=== PATIENT | male | born 1955 | race Caucasian/White ===

== ENCOUNTER 2023-01-22 09:13 | Outpatient (CLI) | payer MEDICARE, SELFPAY ==
[2023-01-22 18:44] LABS: Basophils Percent Auto 0.8 % (0.2-1.2); Eosinophils Absolute Auto 0.1 K/mm3 (0-0.3); Eosinophils Percent Auto 2.3 % (0-4.4); Hematocrit 45.9 % (42.0-52.0); Hemoglobin 15.2 g/dL (14.0-18.0); Immature Granulocyte Absolute 0.01 K/mm3 (0.00-0.031); Immature Granulocyte Percent A 0.2 % (0-0.5); Lymphocytes Absolute Auto 1.44 K/mm3 (0.9-3.2); Lymphocytes Percent Auto 29.6 % (18.3-44.2); Mean Corpuscular HGB Conc 33.1 g/dl (32-36); Mean Corpuscular Hemoglobin 28.7 pg (26-34); Mean Corpuscular Volume 86.8 fl (80-100); Mean Platelet Volume 10.6 fl (7.4-10.4); Monocytes Absolute Auto 0.5 K/mm3 (0.1-0.6); Monocytes Percent Auto 9.7 % (2.6-8.5); Neutrophils Absolute Auto 2.8 K/mm3 (1.3-6.7); Neutrophils Percent Auto 57.4 % (45.5-73.1); Platelet Count Result 215 k/mm3 (150-375); Red Blood Count 5.29 M/mm3 (4.6-6.20); Red Cell Distribution Width 11.9 % (11.5-14.5); White Blood Count 4.9 K/mm3 (4.5-10.0)
[2023-01-22 19:06] LABS: Alanine Aminotransferase 40 U/L (6-50); Albumin Level 4.7 g/dL (3.5-5.1); Alkaline Phosphatase 88 U/L (38-126); Anion Gap 8 mmol/L (8-16); Aspartate Amino Transferase 39 U/L (17-59); Bilirubin,Total 0.7 mg/dL (0.2-1.3); Blood Urea Nitrogen 24 mg/dL (9-20); Carbon Dioxide 28 mmol/L (22-30); Chloride 99 mmol/L (98-107); Cholesterol 169 mg/dL (0-200); Estimated Glomerular Filt Rate > 60; Glucose 186 mg/dL (65-110); HDL Direct 39 mg/dL; Potassium 4.2 mmol/L (3.4-5.0); Sodium 135 mmol/L (137-145); Triglycerides 160 mg/dL (<150)
[2023-01-22 19:17] LABS: Creatinine Urine 178.2 mg/dL
[2023-01-22 19:18] LABS: LDL Cholesterol Direct 79 mg/dL
[2023-01-22 19:21] LABS: Vitamin D 25 Hydroxy 51.8 ng/mL
[2023-01-22 19:21] LABS: MALB Creatinine Ratio 9.7 mg/g (0-30); Microalbumin Urine Random 17.2 mg/L (0-16.7)
[2023-01-22 19:33] LABS: Hemoglobin A1C 7.7 % (<5.7)
[2023-01-22 19:36] LABS: Prostate Specific Antigen 1.2 ng/mL (< OR = 4.0)
== END 2023-01-22 09:14 | disposition home or self-care (01) ==
LOC: ANHGOSHLAB 09:15
PROVIDERS: PCP Family Medicine; Visit Provider Family Medicine
DX: E55.9 Vitamin D deficiency, unspecified (principal); E53.8 Deficiency of other specified B group vitamins; Z13.29 Encounter for screening for other suspected endocrine disorder; E11.9 Type 2 diabetes mellitus without complications; Z79.899 Other long term (current) drug therapy; Z12.5 Encounter for screening for malignant neoplasm of prostate; E78.5 Hyperlipidemia, unspecified
CPT/HCPCS: 36415; 80053; 80061; 82043; 82306; 82607; 83036; 84153; 84443; 85025; G0103

== ENCOUNTER 2023-05-22 11:24 | Day surgery (SDC) | payer MEDICARE, SELFPAY ==
--- NOTE | 2023-05-21 15:56 | WPDANESEPPF ---
Anes - Initial Pre Proc Eval Procedure: Operation Date: 05/22/23 13:00 Proposed Procedures p Colonoscopy - Abdelrahman Coronado MD Date/Time: 05/21/23 15:56 Surgeon: Abdelrahman Coronado MD Pre Op Diagnosis: HX Colon Polyps,FA HX Malignant Neoplasm Dig.Organ Patient Data Age: 67 Gender: M Height: 1.85 m Weight: 97.976 kg Allergies Allergy/AdvReac Type Severity Reaction Status Date / Time No Known Allergies Allergy Verified 05/22/23 11:40 Home Medications Medication Instructions Recorded Confirmed Type triamcinolone acetonide 0.1 % 1 applic topical BID PRN rash #15 12/12/20 05/22/23 Rx topical cream grams blood sugar diagnostic (Blood #100 ea 01/22/23 01/22/23 Rx Glucose Test strips) blood-glucose meter (Blood Glucose #1 ea 01/22/23 01/22/23 Rx Monitoring kit) lancets 33 gauge #100 ea 01/22/23 01/22/23 Rx metformin 500 mg tablet,extended 1,500 mg PO DAILY #270 tabs 01/23/23 05/22/23 Rx release 24hr simvastatin 20 mg tablet 20 mg PO QHS #90 tabs 02/17/23 05/22/23 Rx sodium,potassium,mag sulfates 17.5 See Rx Instructions PO .COMPLEX 04/24/23 04/29/23 Rx gram-3.13 gram-1.6 gram oral soln #354 mL (Suprep Bowel Prep Kit) multivitamin 1 tablet PO DAILY 04/29/23 05/22/23 History Patient hx anesthesia problems: none Family hx anesthesia problems: none Results Review: All pre-operative results and documents have been reviewed as part of the pre-operative evaluation. [facility] Past Medical History Medical History (Updated 05/22/23 @ 12:12 by Abdelrahman Coronado MD) Dyslipidemia Herpes zoster infection of thoracic region (~11/2021) History of colon polyps Hx of Achilles tendon repair physical therapy/no surgery - Right - 07/2014 Hx of fracture of clavicle Right - 03/1975 Lumbar spondylosis Type 2 diabetes mellitus without complications Surgical History Surgical History Hx of removal of cyst (~2010) Left hand, middle finger Hx of wisdom tooth extraction (~1980) Family History Family History Mother Family history of Parkinson's disease Father Carcinoma of colon Family history of malignant neoplasm of gastrointestinal tract Other Family history of malignant neoplasm Family history of mental disorder Social History Social History Smoking status: Never smoker Second hand tobacco smoke exposure: No Alcohol intake: current Alcohol use details: 1-2 per month Substance use: never Substance use type: does not use Lack of Transportation: No Lack of Food: Never True Current Housing: I Have Housing Concerned About Future Housing: No Difficulty Paying Gas/Electric Bills: No Difficulty Paying for Meds: No Currently Unemployed: No Education: Bachelor's Degree Difficulty w/ Childcare or Family Care: No Living arrangements: with family Additional living arrangements comments: Occupation/Education: retired Gender identity (if verbalized by the patient): Male Sexual Orientation (if Verbalized by the Patient): Straight or Heterosexual Spiritual care concerns: No Agree to blood products: Yes Anes - Eval Final PreProcedure Day of Procedure 05/21/23 15:56 Patient weight: overweight Heart: regular rate and rhythm Lungs: clear to auscultation Airway: Mallampati scale class II Neurological: alert and oriented Last oral intake: >/= 8 hours ASA classification: III Emergent: no Anesthetic plan: proceed Anesthesia type and monitoring: general GIVS and standard monitoring Results Review: All pre-operative results and documents have been reviewed as part of the pre-operative evaluation. Informed Consent: The patient's anesthetic plan and its attendant risks and benefits were discussed with the patient/family/POA. Questions were solicited and answers provided to the satisfactio
[2023-05-22 11:45] VITALS: BP 143/91; PULSE 94; RESP 14; TEMP 36.5; O2SAT 99
[2023-05-22] MEDS: LACTATED RINGERS 1,000 ML 150 ML IV CONT (11:59)
--- NOTE | 2023-05-22 12:10 | PM.HPGS ---
History of Present Illness History of Present Illness Consent: Risks, benefits, and alternatives have been discussed and questions answered. Patient agrees to proceed with procedure. Chief complaint: HX Colon Polyps,FA HX Malignant Neoplasm Dig.Organ Narrative: Demetrius Wolfe is a 67 year old male Presents for screening colonoscopy. It has normal bowel movements. His current weight appetite and bowel movements are normal. Patient has a very distant history of adenomatous colon polyp removed in 2007. Most recent colonoscopy 5 years ago was unremarkable. Family history is significant that his father had colon cancer. Review of Systems Review of Systems: review of Systems noncontributory. [facility] Past Medical History Medical History (Updated 05/22/23 @ 12:12 by Abdelrahman Coronado MD) Dyslipidemia Herpes zoster infection of thoracic region (~11/2021) History of colon polyps Hx of Achilles tendon repair physical therapy/no surgery - Right - 07/2014 Hx of fracture of clavicle Right - 03/1975 Lumbar spondylosis Type 2 diabetes mellitus without complications Surgical History Surgical History Hx of removal of cyst (~2010) Left hand, middle finger Hx of wisdom tooth extraction (~1980) Family History Family History Mother Family history of Parkinson's disease Father Carcinoma of colon Family history of malignant neoplasm of gastrointestinal tract Other Family history of malignant neoplasm Family history of mental disorder Social History Social History Smoking status: Never smoker Second hand tobacco smoke exposure: No Alcohol intake: current Alcohol use details: 1-2 per month Substance use: never Substance use type: does not use Lack of Transportation: No Lack of Food: Never True Current Housing: I Have Housing Concerned About Future Housing: No Difficulty Paying Gas/Electric Bills: No Difficulty Paying for Meds: No Currently Unemployed: No Education: Bachelor's Degree Difficulty w/ Childcare or Family Care: No Living arrangements: with family Additional living arrangements comments: Occupation/Education: retired Gender identity (if verbalized by the patient): Male Sexual Orientation (if Verbalized by the Patient): Straight or Heterosexual Spiritual care concerns: No Agree to blood products: Yes Meds Home Medications and Allergies Home Medications Medication Instructions Recorded Confirmed Type triamcinolone acetonide 0.1 % 1 applic topical BID PRN rash #15 12/12/20 05/22/23 Rx topical cream grams blood sugar diagnostic (Blood #100 ea 01/22/23 01/22/23 Rx Glucose Test strips) blood-glucose meter (Blood Glucose #1 ea 01/22/23 01/22/23 Rx Monitoring kit) lancets 33 gauge #100 ea 01/22/23 01/22/23 Rx metformin 500 mg tablet,extended 1,500 mg PO DAILY #270 tabs 01/23/23 05/22/23 Rx release 24hr simvastatin 20 mg tablet 20 mg PO QHS #90 tabs 02/17/23 05/22/23 Rx sodium,potassium,mag sulfates 17.5 See Rx Instructions PO .COMPLEX 04/24/23 04/29/23 Rx gram-3.13 gram-1.6 gram oral soln #354 mL (Suprep Bowel Prep Kit) multivitamin 1 tablet PO DAILY 04/29/23 05/22/23 History Allergies Allergy/AdvReac Type Severity Reaction Status Date / Time No Known Allergies Allergy Verified 05/22/23 11:40 Vital Signs Vital Signs - 24 hr 05/22/23 11:45 Temperature 97.7 F Pulse Rate 94 Respiratory Rate 14 Blood Pressure 143/91 H Pulse Oximetry 99 Oxygen Delivery Room Air Exam Narrative: physical exam reveals patient to be alert. Vital signs stable. HEENT exam is unremarkable. Patient is anicteric. Lungs are clear to auscultation and to percussion. Heart is without murmur or extra sounds. Abdomen bowel sounds are present soft nontender with no o
[2023-05-22 12:36] VITALS: BP 133/76; PULSE 86; RESP 16; O2SAT 99
[2023-05-22 12:46] VITALS: BP 124/74; PULSE 77; RESP 16; O2SAT 98
[2023-05-22 12:56] VITALS: BP 128/78; PULSE 75; RESP 16; O2SAT 97
[2023-05-22 13:03] LABS: Glucose Point of Care 123 mg/dl (65-105)
--- NOTE | 2023-05-22 14:22 | WPDANESPN ---
Anes - Prog Note Post-Op Date/Time: 05/22/23 14:22 Cardiovascular status: normal Respiratory status: normal Airway patency: baseline Mental status: baseline Post-Op hydration status: normal Vital Signs: Last Vital Signs Temp 36.5 C 05/22/23 11:45 Pulse 75 05/22/23 12:56 Resp 16 05/22/23 12:56 BP 128/78 05/22/23 12:56 Pulse Ox 97 05/22/23 12:56 O2 Del Method Room Air 05/22/23 12:56 Pain Score (VAS): 0 I/O: Intake & Output 05/21/23 05/22/23 05/22/23 23:59 07:59 15:59 Intake Total 400 Balance 400 05/22/23 11:54 POC Capillary Glucose 123 H Post-procedural complaints: none Patient Feedback: Patient satisfied with anesthetic care. Other Findings: Patient vital signs back to baseline. Patient denies nausea and vomiting. Patient's pain under control. Patient OK for discharge.
== END 2023-05-22 13:14 | disposition home or self-care (01) ==
PROVIDERS: PCP Family Medicine; Visit Provider Internal Medicine Gastroenterology
PROC: 0DJD8ZZ Inspection of Lower Intestinal Tract, Via Natural or Artificial Opening Endoscopic (ICD-10-PCS; CPT 45378; principal; 2023-05-22 13:00)
DX: Z86.010 Personal history of colon polyps (principal); K57.30 Diverticulosis of large intestine without perforation or abscess without bleeding; K64.8 Other hemorrhoids
CPT/HCPCS: 45378

== ENCOUNTER 2024-04-07 12:31 | Outpatient (CLI) | payer MEDICARE, SELFPAY ==
[2024-04-07 18:46] LABS: Basophils Absolute Auto 0.1 K/mm3 (0.0-0.1); Basophils Percent Auto 0.8 % (0.2-1.2); Eosinophils Absolute Auto 0.1 K/mm3 (0-0.3); Eosinophils Percent Auto 1.4 % (0-4.4); Hematocrit 45.3 % (42.0-52.0); Hemoglobin 15.2 g/dL (14.0-18.0); Immature Granulocyte Absolute 0.01 K/mm3 (0.00-0.031); Immature Granulocyte Percent A 0.1 % (0-0.5); Lymphocytes Absolute Auto 1.51 K/mm3 (0.9-3.2); Lymphocytes Percent Auto 19.5 % (18.3-44.2); Mean Corpuscular HGB Conc 33.6 g/dl (32-36); Mean Corpuscular Hemoglobin 29.9 pg (26-34); Mean Corpuscular Volume 89.2 fl (80-100); Mean Platelet Volume 10.6 fl (7.4-10.4); Monocytes Absolute Auto 0.6 K/mm3 (0.1-0.6); Monocytes Percent Auto 8.3 % (2.6-8.5); Neutrophils Absolute Auto 5.4 K/mm3 (1.3-6.7); Neutrophils Percent Auto 69.9 % (45.5-73.1); Platelet Count Result 234 k/mm3 (150-375); Red Blood Count 5.08 M/mm3 (4.6-6.20); Red Cell Distribution Width 11.9 % (11.5-14.5); White Blood Count 7.7 K/mm3 (4.5-10.0)
[2024-04-07 19:36] LABS: Creatinine Urine 55.2 mg/dL
[2024-04-07 19:49] LABS: Alanine Aminotransferase 28 U/L (6-50); Albumin Level 4.7 g/dL (3.5-5.1); Alkaline Phosphatase 71 U/L (38-126); Anion Gap 6 mmol/L (4-12); Aspartate Amino Transferase 47 U/L (17-59); Bilirubin,Total 0.7 mg/dL (0.2-1.3); Blood Urea Nitrogen 18 mg/dL (9-20); Calcium 9.4 mg/dL (8.4-10.2); Carbon Dioxide 30 mmol/L (22-30); Chloride 95 mmol/L (98-107); Cholesterol 125 mg/dL (0-200); Estimated Glomerular Filt Rate > 60; Glucose 115 mg/dL (65-110); HDL Direct 39 mg/dL; Potassium 5.4 mmol/L (3.4-5.0); Sodium 131 mmol/L (137-145); Triglycerides 112 mg/dL (<150)
[2024-04-07 19:58] LABS: Vitamin D 25 Hydroxy 52.6 ng/mL
[2024-04-07 20:00] LABS: LDL Cholesterol Direct 56 mg/dL
[2024-04-07 20:08] LABS: MALB Creatinine Ratio < 10.9 mg/g (0-30); Microalbumin Urine Random < 6.0 mg/L (0-16.7)
[2024-04-07 20:20] LABS: Prostate Specific Antigen 1.1 ng/mL (< OR = 4.0)
[2024-04-07 20:32] LABS: Hemoglobin A1C 6.8 % (<5.7)
== END 2024-04-07 12:32 | disposition home or self-care (01) ==
LOC: ANHGOSHLAB 12:32
PROVIDERS: PCP Family Medicine; Visit Provider Family Medicine
DX: Z12.5 Encounter for screening for malignant neoplasm of prostate (principal); E78.5 Hyperlipidemia, unspecified; I10 Essential (primary) hypertension; E11.9 Type 2 diabetes mellitus without complications; E53.8 Deficiency of other specified B group vitamins; E55.9 Vitamin D deficiency, unspecified
CPT/HCPCS: 36415; 80053; 80061; 82043; 82306; 82607; 83036; 84153; 84443; 85025; G0103

== ENCOUNTER 2024-10-06 09:14 | Outpatient (CLI) | payer MEDICARE, SELFPAY ==
--- OUTSIDE RECORDS SUMMARY | 2024-10-06 10:09 | XMS_ITS | Clinical Summary ---
Author Organization [facility] Address [address], [address] [address] Phone Care Team Providers Care Bilingual Instructor Name Role Phone Yaz Rinaldi MD Primary Care Provi nadeem Allergies No known active allergies Medications Multiple Vitamins-Mineral s (MULTIVITAMIN PO) Take 1 Tab by mouth daily. Active PSYLLIUM HUSK PO Take by mouth. Active Family History Medical History Relation Name Comments Cancer Father colon, rectum Parkinsonism Mother Cancer Sister breast Relation Name Status Comments Father Mother Sister Social History Tobacco Use Types Packs/Day Years Used Date Smoking Tobacco: Never Smokeless Tobacco: Never Alcohol Use Standard Drinks/Week Comments Yes 1 (1 standard drink = 0.6 oz pur e alcohol) 1 beer a week Sex and Gender Information Value Date Recorded Sex Assigned at Not on file Legal Sex Male 7:07 PM CDT Gender Identity Not on file Sexual Orientation Not on file Occupation Industry Job Start Date Job End Date IT Not on file Not on file Not on file Last Filed Vital Signs Vital Sign Reading Time Taken Comments Blood Pressure 120/76 01/16/2018 10:06 AM CDT Pulse 85 01/16/2018 10:06 AM CDT Temperature 36 C (96.8 F) 01/16/2018 10:06 AM CDT Respiratory Rate 12 01/16/2018 10:06 AM CDT Oxygen Saturation 98% 01/16/2018 10:06 AM CDT Inhaled Oxygen Concentration - - Weight 104.3 kg (230 lb) 12/10/2017 3:00 PM CDT Height 182.9 cm (6') 12/10/2017 3:00 PM CDT Body Mass Index 31.19 12/10/2017 3:00 PM CDT Plan of Treatment Health Maintenance Due Date Last Done Comments Hepatitis C Virus (HCV) Screening 1955 TdaP Immunization 1955 Cologuard 2006 Immunochemical Fecal Occult Blood 2006 Pneumococcal Immunization (5 0+ years) (1 of 1 - PCV) 2006 Zoster Immunization (1 of 2) 2006 PSA Discussion 2011 Colonoscopy 01/16/2023 01/16/2018 Colorectal Cancer Screening 01/16/2023 Influenza Immunization (#1) 2024 SARS-COV-2 Immunization ( - 2023- season) 2024 Respiratory Syncytial Virus (RSV) Immunization (Adult) (1 - 1-dose 75+ series) 2031 01/16/2018 Hepatitis B Immunization Aged Out No longer eligible based on patient's age to complete this topic Meningococcal Immunization (ACWY) Aged Out No longer eligible based on patient's age to complete this topic Rotavirus Immunization Aged Out No lo nger eligible based on patient's age to complete this topic Care Teams Bilingual Instructor Relationship Specialty Start Date End Date Yaz Rinaldi MD [address] [place] [address] PCP - General Family Medicine 01/09/18
[2024-10-06 13:30] LABS: Alanine Aminotransferase 34 U/L (6-50); Albumin Level 4.7 g/dL (3.5-5.1); Alkaline Phosphatase 66 U/L (38-126); Anion Gap 10 mmol/L (4-12); Aspartate Amino Transferase 45 U/L (17-59); Bilirubin,Total 0.6 mg/dL (0.2-1.3); Blood Urea Nitrogen 18 mg/dL (9-20); Calcium 9.2 mg/dL (8.4-10.2); Carbon Dioxide 28 mmol/L (22-30); Chloride 99 mmol/L (98-107); Estimated Glomerular Filt Rate > 60; Glucose 157 mg/dL (65-110); Potassium 4.6 mmol/L (3.4-5.0); Sodium 137 mmol/L (137-145)
[2024-10-06 13:58] LABS: Hemoglobin A1C 7.2 % (<5.7)
== END 2024-10-06 09:15 | disposition home or self-care (01) ==
LOC: ANHGOSHLAB 09:15
PROVIDERS: PCP Family Medicine; Visit Provider Family Medicine
DX: E78.5 Hyperlipidemia, unspecified (principal); E11.9 Type 2 diabetes mellitus without complications; Z79.899 Other long term (current) drug therapy
CPT/HCPCS: 36415; 80053; 83036

== ENCOUNTER 2025-05-04 09:44 | Outpatient (CLI) | payer MEDICARE, SELFPAY ==
--- OUTSIDE RECORDS SUMMARY | 2025-05-04 11:06 | XMS_ITS | Clinical Summary ---
Author Organization [facility] Address [address], [address] [address] Phone Care Team Providers Care Environmental Marketer Name Role Phone Yaz Rinaldi MD Primary [...] (HCV) Screening 1955 TdaP Immunization 1955 Cologuard 2001 Immunochemical Fecal Occult Blood 2001 Pneumococcal Immunization (5 0+ years) (1 of 1 - PCV) 2006 Zoster Immunization (1 of 2) 2006 Colonoscopy 01/16/2023 01/16/2018 Colorectal Cancer Screening 01/16/2023 Influenza Immunization (#1) 2025 SARS-COV-2 Immunization (1 - season) 2025 Respiratory Syncytial Virus (RSV) Immunization (Adult) (1 - 1-dose 75+ series) 2031 Hepatitis B Immunization Aged Out No longer eligible based on patient's age to complete this topic Human Papillomavirus (HPV) Immunization Aged Out No longer eligible b ased on patient's age to complete this topic Meningococcal Immunization (ACWY) Aged Out No longer eligible based on patient's age to complete this topic Rotavirus Immunization Aged Out No lo nger eligible based on patient's age to complete this topic Care Teams Environmental Marketer Relationship Specialty Start Date End Date Yaz Rinaldi MD [address] [place], [place] [id number] PCP - General Family Medicine 01/09/18
[2025-05-04 12:53] LABS: Hematocrit 43.6 % (42.0-52.0); Hemoglobin 14.3 g/dL (14.0-18.0); Immature Granulocyte Percent A 0.2 % (0-0.5); Lymphocytes Absolute Auto 1.50 K/mm3 (0.9-3.2); Mean Corpuscular HGB Conc 32.8 g/dl (32-36); Mean Corpuscular Hemoglobin 28.8 pg (26-34); Mean Corpuscular Volume 87.7 fl (80-100); Nucleated Red Blood Cells Absolute Auto 0.000 K/mm3 (0.0-0.012); Nucleated Red Blood Cells Perc 0.0 % (0.0-0.2); Platelet Count Result 225 k/mm3 (150-375); Red Blood Count 4.97 M/mm3 (4.6-6.20); White Blood Count 5.9 K/mm3 (4.5-10.0)
[2025-05-04 13:09] LABS: Alanine Aminotransferase 32 U/L (6-50); Albumin Level 4.5 g/dL (3.5-5.1); Alkaline Phosphatase 70 U/L (38-126); Anion Gap 9 mmol/L (4-12); Aspartate Amino Transferase 50 U/L (17-59); Bilirubin,Total 0.6 mg/dL (0.2-1.3); Blood Urea Nitrogen 11 mg/dL (9-20); Calcium 9.3 mg/dL (8.4-10.2); Carbon Dioxide 28 mmol/L (22-30); Chloride 98 mmol/L (98-107); Cholesterol 137 mg/dL (0-200); Estimated Glomerular Filt Rate > 60; Glucose 137 mg/dL (65-110); HDL Direct 40 mg/dL; Potassium 4.4 mmol/L (3.4-5.0); Sodium 135 mmol/L (137-145); Total Protein 7.4 g/dL (6.3-8.2); Triglycerides 129 mg/dL (<150)
[2025-05-04 13:39] LABS: Thyroid Stimulating Hormone Reflex 4.030 uIU/mL (0.465-4.68)
[2025-05-04 13:46] LABS: Prostate Specific Antigen 1.3 ng/mL (< OR = 4.0)
[2025-05-04 13:55] LABS: MALB Creatinine Ratio < 23.9 mg/g (0-30)
[2025-05-04 14:05] LABS: Vitamin B12 399.0 pg/mL (239-931)
[2025-05-04 18:03] LABS: Hemoglobin A1C 8.4 % (<5.7)
[2025-05-04 21:20] LABS: Free T4 Free Thyroxine Reflex 1.21 ng/dL (0.78-2.19)
[2025-05-04 22:11] LABS: Total Triiodothyronine (T3) 1.20 NG/ML (0.82-1.58)
== END 2025-05-04 09:45 | disposition home or self-care (01) ==
PROVIDERS: PCP Family Medicine; Visit Provider Family Medicine
DX: E53.8 Deficiency of other specified B group vitamins (principal); E11.9 Type 2 diabetes mellitus without complications; I10 Essential (primary) hypertension; E78.5 Hyperlipidemia, unspecified; E55.9 Vitamin D deficiency, unspecified; Z12.5 Encounter for screening for malignant neoplasm of prostate
CPT/HCPCS: 36415; 80053; 80061; 82043; 82306; 82607; 83036; 84153; 84439; 84443; 84480; 85025; G0103